=== PATIENT | female | born 1950 | race Caucasian/White ===

== ENCOUNTER 2018-08-31 20:11 | Emergency (ER) | payer OTHER ==
--- NOTE | 2018-08-31 21:39 | RAD REPORT ---
EXAM DESCRIPTION: CT - CTHCSPWOC - 08/31/2018 9:10 pm CLINICAL HISTORY: Fall, head and neck injury COMPARISON: None. TECHNIQUE: Axial 5 mm thick images of the head were obtained. Axial 2 mm thick images of the cervic al spine were obtained with sagittal and coronal reconstruction images generated and reviewed. All CT scans are performed using dose optimization technique as appropriate and may include automated exposure control or mA/KV adjustment according to patient size. FINDINGS: No intracranial hemorrhage, mass, edema or acute intracranial finding. No suspicion for ac christine infarction. No extra-axial fluid collections. Mastoid air cells and paranasal sinuses are clear. No globe or orbit abnormality seen. Cervical body height and alignment are normal. C5-6 and C6-7 disc space narrowing seen with associate d endplate spurring. There is significant right C5-6 bony foraminal encroachment from uncovertebral j oint hypertrophy. Canal is borderline stenotic at C5-6 and C6-7. No fracture or acute bony abnormalit y. Central canal detail is inherently limited. No paraspinal mass or hematoma. IMPRESSION: No hemorrhage, edema or acute intracranial finding. No fracture or acute cervical spine finding. Significant degenerative change present at C5-6 and C6-7 . Central canal detail is inherently limited.
--- NOTE | 2018-08-31 21:50 | RAD REPORT ---
EXAM DESCRIPTION: RAD - Pelvis - 08/31/2018 9:27 pm CLINICAL HISTORY: Trip and fall, pelvic pain COMPARISON: None. TECHNIQUE: AP imaging of the pelvis was obtained. FINDINGS: No fracture of the bony pelvis. No fracture, dislocation or other acute hip joint finding. No significant SI joint findings. Multiple phleboliths are seen along the floor the pelvis. No soft tissue abnormality. IMPRESSION: Negative pelvis for acute or significant findings.
--- NOTE | 2018-08-31 21:51 | RAD REPORT ---
EXAM DESCRIPTION: RAD - Wrist Right 3 View - 08/31/2018 9:29 pm CLINICAL HISTORY: Trip and fall, wrist pain COMPARISON: None. FINDINGS: No fracture is identified. There is no dislocation or periosteal reaction noted. No signif icant degenerative change identifiable. No foreign body or other soft tissue abnormality. IMPRESSION: Negative right wrist examination.
--- NOTE | 2018-08-31 21:53 | RAD REPORT ---
EXAM DESCRIPTION: RAD - Humerus Right - 08/31/2018 9:28 pm CLINICAL HISTORY: Trip and fall, arm pain COMPARISON: None. FINDINGS: No fracture is identified in the humerus. There is no dislocation or periosteal reaction n oted. No foreign body or other soft tissue abnormality. Elbow joint is only partially imaged. There is suspicion for fracture of the radial head. IMPRESSION: No fracture of the right humerus. High probability of right radial head fracture only partially evaluated on this study.
--- NOTE | 2018-08-31 21:55 | RAD REPORT ---
EXAM DESCRIPTION: RAD - Wrist Left 3 View - 08/31/2018 9:29 pm CLINICAL HISTORY: Trip and fall, left wrist pain COMPARISON: None. FINDINGS: No fracture is identified. There is no dislocation or periosteal reaction noted. No foreig n body or other soft tissue abnormality. IMPRESSION: Negative left wrist examination.
--- NOTE | 2018-08-31 23:52 | ER ---
Nurse's Notes [facility] Name: Quynh Benjamin Age: 67 yrs Sex: Female : 1950 Arrival Date: 08/31/2018 Time: 20:20 Bed 5 Private MD: Diagnosis: Nondisplaced fracture of head of right radius;Contusion of other part of head Presentation: 08/31 20:13 Presenting complaint: EMS states: patient fell down from 3 flight stairs sustained rr5 abrasion left forehead, pain at right arm and right knee. no LOC noted. 20:13 Care prior to arrival: Cervical collar in place. Placed on backboard. Mechanism of rr5 Injury: Fall down 3 steps. Trauma event details: Injury occurred in the [facility], Injury occurred: in a recreational area. Injury occurred: August 31, 2018 Injury occurred at: 19:45. 20:13 Acuity: KYRA 3 rr5 20:13 Method Of Arrival: EMS: [facility] rr5 20:13 Risk Assessment: Do you want to hurt yourself or someone else? Patient reports no rr5 desire to harm self or others. 20:13 Transition of care: patient was not received from another setting of care. Onset of rr5 symptoms was August 31, 2018. Initial Sepsis Screen: Does the patient meet any 2 criteria? No. Patient's initial sepsis screen is negative. Does the patient have a suspected source of infection? No. Patient's initial sepsis screen is negative. Trauma Activation: Alert Physician: ED Physician; Name: dr. santiago; Notified At: 20:15; Arrived At: 20:15 Physician: General Surgeon; Name: ; Notified At: 20:15; Arrived At: Physician: Radiology; Name: yayo; Notified At: 20:15; Arrived At: 20:21 Physician: Respiratory; Name: ; Notified At: 20:15; Arrived At: Physician: Lab; Name: ; Notified At: 20:15; Arrived At: Historical: - Allergies: 20:20 No Known Allergies; rr5 - Home Meds: 20:20 prestic [Active]; maxide [Active]; rr5 - PMHx: 20:20 spondylosis; rr5 20:20 BPPV; rr5 - PSHx: 20:20 Hysterectomy; Appendectomy; Tonsillectomy; Lumpectomy; left foot fasciotomy; rr5 - Immunization history:: Last tetanus immunization: up to date. - Immunization history: Last tetanus immunization: - up to date. - Social history:: Smoking status: Patient uses tobacco products, denies chronic smoking, but will smoke occasionally, Patient/guardian denies using alcohol, street drugs. - Ebola Screening: : Patient negative for fever greater than or equal to 101.5 degrees Fahrenheit, and additional compatible Ebola Virus Disease symptoms Patient denies exposure to infectious person Patient denies travel to an Ebola-affected area in the 21 days before illness onset. Screenin:15 Abuse screen: Denies threats or abuse. Denies injuries from another. Tuberculosis rr5 screening: No symptoms or risk factors identified. Fall risk. 20:15 Nutritional screening: No deficits noted. rr5 20:15 Fall Risk Fall in past 12 months (25 points). Ambulatory Aid- None/Bed Rest/Nurse rr5 Assist (0 pts). Total García Fall Scale indicates Low Risk Score (25-44 pts). Fall prevention measures have been instituted. Side Rails Up X 2 1:1 attendant Assigned to Pt. Frequent Obs/Assesments occuring As available Patient and Family Educated on Fall Prevention Program and strategies. Primary Survey: 20:13 NO uncontrolled hemorrhage observed. rr5 20:13 A: The patient is alert. Airway: patent, Trachea midline. Breathing/Chest: Respiratory rr5 pattern: regular, Respiratory effort: spontaneous, unlabored. Circulation: Heart tones present. Pulses: palpable . Skin color: pink, Skin temperature: warm. Disability Alert. Exposure/Environment: A warming method has been applied: A warm blanket has been provided to the patient. 21:15 Reassessment Airway Airway Patent Breathing/Chest Respiratory pattern Regular rr5 Respiratory effort Spontaneous Unlabored Circulation Heart rhythm Sinus rhythm Disability Alert. Secondary Survey: 20:13 HEENT: No deficits noted. Gastrointestinal: No deficits noted. : No deficits noted. rr5 Musculoskeletal: Capillary refill < 3 seconds, Range of motion: intact in all extremities, pain and limited movement at right arm and right knee. Injury Description: Abrasion sustained to left forehead. Assessment: 20:16 General: Appears in no apparent distress. comfortable, Behavior is calm, cooperative, rr5 appropriate for age. Pain: Complains of pain in right arm, right knee Pain does not radiate. Pain currently is 7 out of 10 on a pain scale. Quality of pain is described as aching, Pain began suddenly, Is intermittent, Alleviated by repositioning, Aggravated by increased activity. Neuro: Level of Consciousness is awake, alert, obeys commands, Oriented to person, place, time, situation. EENT: No signs and/or symptoms were reported regarding the EENT system. wearing bilateral hearing aids. Cardiovascular: Capillary refill < 3 seconds Patient's skin is warm and dry. Respiratory: Airway is patent Respiratory effort is even, unlabored, Respiratory pattern is regular, symmetrical. GI: No signs and/or symptoms were reported involving the gastrointestinal system. : No signs and/or symptoms were reported regarding the genitourinary system. Derm: Skin abrasion at left forehead, right arm bilateral knee. Musculoskeletal: Capillary refill < 3 seconds, Range of motion: intact in right shoulder, right elbow, right wrist and right knee. 20:35 Reassessment: Patient appears in no apparent distress at this time. log rolling done rr5 examined by the ED provider. back is clear. spine board removed. 21:30 Reassessment: Patient appears in no apparent distress at this time. Patient is alert, rr5 oriented x 3, equal unlabored respirations, skin warm/dry/pink. came back from CT scan and xray no complaints made. awaiting for report. 22:15 Reassessment: Patient appears in no apparent distress at this time. Patient is alert, rr5 oriented x 3, equal unlabored respirations, skin warm/dry/pink. ED provider cleared the cervical spine. C collar removed. 23:30 Reassessment: Patient appears in no apparent distress at this time. Patient is alert, rr5 oriented x 3, equal unlabored respirations, skin warm/dry/pink. Patient states feeling better. Patient states symptoms have improved. 09/01 00:15 Reassessment: Patient appears in no apparent distress at this time. Patient is alert, rr5 oriented x 3, equal unlabored respirations, skin warm/dry/pink. discharge instruction given and explained without complaints made. Patient states feeling better. Patient states symptoms have improved. Vital Signs: 08/31 20:13 BP 147 / 78; Pulse 73; Resp 16; Temp 98; Pulse Ox 99% ; Weight 101.6 kg; Height 5 ft. 4 rr5 in. (162.56 cm); Pain 7/10; 20:30 BP 144 / 82; Pulse 74; Resp 16; Pulse Ox 99% ; rr5 21:30 BP 146 / 81; Pulse 77; Resp 18; Pulse Ox 99% ; rr5 22:39 BP 134 / 68; Pulse 69; Resp 16; Pulse Ox 97% on R/A; mt 23:39 BP 146 / 49; Pulse 74; Resp 16; Pulse Ox 98% on R/A; mt 20:13 Body Mass Index 38.45 (101.60 kg, 162.56 cm) rr5 Sea Coma Score: 20:13 Eye Response: spontaneous(4). Verbal Response: oriented(5). Motor Response: obeys rr5 commands(6). Total: 15. Trauma Score (Adult): 20:13 Eye Response: spontaneous(1); Verbal Response: oriented(1); Motor Response: obeys rr5 commands(2); Systolic BP: > 89 mm Hg(4); Respiratory Rate: 10 to 29 per min(4); Sea Score: 15; Trauma Score: 12 ED Course: 20:13 Patient maintains SpO2 saturation greater than 95% on room air. rr5 20:13 Thermoregulation: warm blanket given to patient. rr5 20:15 Patient has correct armband on for positive identification. Placed in gown. Bed in low rr5 position. Call light in reach. Side rails up X2. 20:15 Arm band placed on. rr5 20:15 Pulse ox on. NIBP on. rr5 20:20 Patient arrived in ED. rr5 20:20 Juan White, KIN is Primary Nurse. rr5 20:22 Nima Santiago MD is Attending Physician. gs 20:28 Triage completed. rr5 21:10 CT completed. Patient tolerated procedure well. Patient moved back from CT. nj 21:10 CT Head C Spine In Process Unspecified. EDMS 21:15 Patient moved to radiology. nj 21:28 Humerus Right XRAY In Process Unspecified. EDMS 21:28 Pelvis XRAY In Process Unspecified. EDMS 21:28 Wrist Left (3 View) XRAY In Process Unspecified. EDMS 21:28 Wrist Right 3 View XRAY In Process Unspecified. EDMS 22:55 Elbow Right 3 View XRAY In Process Unspecified. EDMS 23:38 Orthoglass splint: posterior long arm splint applied to the right arm. Sling applied to mt right arm. 23:[address] MD is Referral Physician. 09/01 00:15 Dressings: 4X4s X 2; right knee. rr5 00:18 No provider procedures requiring assistance completed. Patient did not have IV access rr5 during this emergency room visit. Administered Medications: 00:00 Drug: TORadol 30 mg Route: IM; Site: right gluteus; rr5 00:21 Follow up: Response: Medication administered at discharge. rr5 Intake: 08/31 22:30 1x voided freely rr5 Outcome: 20:14 Patient's length of stay was not longer than 2 hours. rr5 23:51 Discharge ordered by MD. 09/01 00:18 Discharged to home ambulatory, with family. rr5 Condition: stable Discharge instructions given to patient, Instructed on discharge instructions, follow up and referral plans. Demonstrated understanding of instructions, follow-up care. 00:29 Patient left the ED. rr5 Signatures: Dispatcher [employer] EDMS Abner Herrera Moriah mt Starr, Gregory, MD MD Juan White, KIN RN rr5 Corrections: (The following items were deleted from the chart) 08/31 20:45 20:16 EENT: No signs and/or symptoms were reported regarding the EENT system. rr5 rr5 20:46 20:16 Derm: Skin abrasion at left forehead rr5 rr5 21:15 21:10 Patient moved to [facility] 21:53 20:20 PMHx: BPVB; rr5 rr5
--- NOTE | 2018-08-31 23:53 | EDPHYS ---
Physician Documentation [facility] Name: Quynh Benjamin Age: 67 yrs Sex: Female : 1950 Arrival Date: 08/31/2018 Time: 20:20 Bed 5 Private MD: ED Physician Nima Paniagua HPI: 08/31 23:40 This 67 yrs old Female presents to ER via EMS with complaints of Fall Injury. gs 23:40 Details of fall: The patient fell from a height, down approximately 4 stairs. Onset: gs The symptoms/episode began/occurred acutely, just prior to arrival. Associated injuries: The patient sustained injury to the head, contusion, neck injury, pain with movement, right tricep and right elbow, painful injury, right hand and left hand. Severity of symptoms: At their worst the symptoms were moderate, in the emergency department the symptoms are unchanged. The patient has not experienced similar symptoms in the past. Historical: - Allergies: 20:20 No Known Allergies; rr5 - Home Meds: 20:20 prestic [Active]; maxide [Active]; rr5 - PMHx: 20:20 spondylosis; rr5 20:20 BPPV; rr5 - PSHx: 20:20 Hysterectomy; Appendectomy; Tonsillectomy; Lumpectomy; left foot fasciotomy; rr5 - Immunization history:: Last tetanus immunization: up to date. - Immunization history: Last tetanus immunization: - up to date. - Social history:: Smoking status: Patient uses tobacco products, denies chronic smoking, but will smoke occasionally, Patient/guardian denies using alcohol, street drugs. - Ebola Screening: : Patient negative for fever greater than or equal to 101.5 degrees Fahrenheit, and additional compatible Ebola Virus Disease symptoms Patient denies exposure to infectious person Patient denies travel to an Ebola-affected area in the 21 days before illness onset. ROS: 23:40 All other systems are negative. gs Exam: 23:40 Eyes: Pupils equal round and reactive to light, extra-ocular motions intact. Lids and gs lashes normal. Conjunctiva and sclera are non-icteric and not injected. Cornea within normal limits. Periorbital areas with no swelling, redness, or edema. ENT: Nares patent. No nasal discharge, no septal abnormalities noted. Tympanic membranes are normal and external auditory canals are clear. Oropharynx with no redness, swelling, or masses, exudates, or evidence of obstruction, uvula midline. Mucous membranes moist. 23:40 Chest/axilla: Normal chest wall appearance and motion. Nontender with no deformity. No lesions are appreciated. Cardiovascular: Regular rate and rhythm with a normal S1 and S2. No gallops, murmurs, or rubs. Normal PMI, no JVD. No pulse deficits. Respiratory: Lungs have equal breath sounds bilaterally, clear to auscultation and percussion. No rales, rhonchi or wheezes noted. No increased work of breathing, no retractions or nasal flaring. Abdomen/GI: Soft, non-tender, with normal bowel sounds. No distension or tympany. No guarding or rebound. No evidence of tenderness throughout. Back: No spinal tenderness. No costovertebral tenderness. Full range of motion. 23:40 Constitutional: The patient appears alert, awake. 23:40 Head/face: Noted is contusion, that is superficial, of the left side of forehead. 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 Joints: the right elbow displays swelling, tenderness, the right wrist displays swelling, tenderness, the left wristdisplays 23:40 Skin: injury, abrasion(s). 23:40 Neuro: Exam negative for acute changes, Orientation: to person, place, time \T\ situation. Cranial nerves: CN II- XII are normal as tested, Motor: is normal, strength is normal, Sensation: no obvious gross deficits. Vital Signs: 20:13 BP 147 / 78; Pulse 73; Resp 16; Temp 98; Pulse Ox 99% ; Weight 101.6 kg; Height 5 ft. 4 rr5 in. (162.56 cm); Pain 7/10; 20:30 BP 144 / 82; Pulse 74; Resp 16; Pulse Ox 99% ; rr5 21:30 BP 146 / 81; Pulse 77; Resp 18; Pulse Ox 99% ; rr5 22:39 BP 134 / 68; Pulse 69; Resp 16; Pulse Ox 97% on R/A; mt 23:39 BP 146 / 49; Pulse 74; Resp 16; Pulse Ox 98% on R/A; mt 20:13 Body Mass Index 38.45 (101.60 kg, 162.56 cm) rr5 Sea Coma Score: 20:13 Eye Response: spontaneous(4). Verbal Response: oriented(5). Motor Response: obeys rr5 commands(6). Total: 15. Trauma Score (Adult): 20:13 Eye Response: spontaneous(1); Verbal Response: oriented(1); Motor Response: obeys rr5 commands(2); Systolic BP: > 89 mm Hg(4); Respiratory Rate: 10 to 29 per min(4); Sea Score: 15; Trauma Score: 12 Procedures: 23:40 Splinting: Splint applied to right arm using Orthoglass splint, applied by tech. gs Examined by me, post splint application: neurovascular intact, 2+ distal pulses palpable, brisk capillary refill noted, Patient tolerated well. MDM: 20:41 Patient medically screened. 23:40 Differential diagnosis: closed head injury, contusion, fracture. Data reviewed: vital gs signs, nurses notes. Counseling: I had a detailed discussion with the patient and/or guardian regarding: the historical points, exam findings, and any diagnostic results supporting the discharge/admit diagnosis, radiology results, the need for outpatient follow up. Response to treatment: the patient's symptoms have markedly improved after treatment, and as a result, I will discharge patient. 08/31 20:43 Order name: CT Head C Spine; Complete Time: 22: 08/31 20:43 Order name: Humerus Right XRAY; Complete Time: 22: 08/31 20:43 Order name: Pelvis XRAY; Complete Time: 22: 08/31 20:43 Order name: Wrist Left (3 View) XRAY; Complete Time: 22: 08/31 20:43 Order name: Wrist Right 3 View XRAY; Complete Time: 22: 08/31 22:03 Order name: Elbow Right 3 View XRAY 08/31 23:06 Order name: Splint - Elbow - Posterior: INCLUDE WRIST; Complete Time: 23:39 Administered Medications: 09/01 00:00 Drug: TORadol 30 mg Route: IM; Site: right gluteus; rr5 00:21 Follow up: Response: Medication administered at discharge. rr5 Disposition: 08/31/18 23:51 Discharged to Home. Impression: Nondisplaced fracture of head of right radius, Contusion of other part of head. - Condition is Stable. - Discharge Instructions: Head Injury, Adult, Radial Head Fracture. - Medication Reconciliation Form, Thank You Letter, Antibiotic Education, Prescription Opioid Use form. - Follow up: Jaime Lane MD; When: 2 - 3 days; Reason: Re-evaluation by your physician. Signatures: Dispatcher [employer] EDMS Nima Paniagua MD MD Juan White RN RN rr5 Corrections: (The following items were deleted from the chart) 08/31 21:53 20:20 PMHx: BPVB; rr5 rr5 23:52 23:51 08/31/2018 23:51 Discharged to Home. Impression: Nondisplaced fracture of head of gs right radius. Condition is Stable. Forms are Medication Reconciliation Form, Thank You Letter, Antibiotic Education, Prescription Opioid Use. Follow up: Jaime Lane; When: 2 - 3 days; Reason: Re-evaluation by your physician. 09/01 00:29 08/31 23:52 08/31/2018 23:51 Discharged to Home. Impression: Nondisplaced fracture of rr5 head of right radius; Contusion of other part of head. Condition is Stable. Discharge Instructions: Head Injury, Adult, Radial Head Fracture. Forms are Medication Reconciliation Form, Thank You Letter, Antibiotic Education, Prescription Opioid Use. Follow up: Jaime Lane; When: 2 - 3 days; Reason: Re-evaluation by your physician.
[2018-08-31] MEDS ORDERED: KETOROLAC 30 MG/ML INJ ONE (23:56)
--- NOTE | 2018-09-01 09:34 | RAD REPORT ---
EXAM DESCRIPTION: RAD - Elbow Right 3 View - 08/31/2018 11:02 pm CLINICAL HISTORY: Right elbow pain FINDINGS: A lucency is present within the radial head suspicious for a nondisplaced fracture. No dislocation is seen
== END 2018-09-01 00:29 | disposition home or self-care (01) ==
LOC: ER 20:11
DX: S52.124A Nondisplaced fracture of head of right radius, initial encounter for closed fracture (principal); S00.93XA Contusion of unspecified part of head, initial encounter; W17.89XA Other fall from one level to another, initial encounter; Y93.9 Activity, unspecified; Y92.9 Unspecified place or not applicable
CPT/HCPCS: 70450; 72125; 72170